=== PATIENT | female | born 1985 | race Caucasian/White ===

== ENCOUNTER 2017-02-24 09:36 | Outpatient (CLI) | payer OTHER | END 2017-02-24 09:37 | disposition home or self-care (01) | LOC: LAB.WCP 09:36 | PROVIDERS: ATTEND Physician Assistant Medical | DX: L02.91 Cutaneous abscess, unspecified (principal) | CPT/HCPCS: 87070; 87205 ==

== ENCOUNTER 2017-05-03 06:51 | Emergency (ER) | payer OTHER ==
[2017-05-03] MEDS ORDERED: KETOROLAC 60 MG/2 ML VIAL IVP STA (07:24)
[2017-05-03] MEDS ORDERED: KETOROLAC 30 MG/ML VIAL ONE (07:30)
--- NOTE | 2017-05-03 07:34 | ED Physician Documentation ---
History of Present Illness - Stated complaint Stated Complaint: CHEST PX - Chief complaint Chief Complaint: Resp - Additonal information Additional information: hx from pt 31 female pleuritic chest tightness and soa since yesterday improved overnight now back no fever cough no sig travel no leg pain swelling + smoker no OCP fhx DVT PE no sig fhx CAD LMP approx 1 m ago she is irreg doubts preg but not using control Review of Systems Constitutional: denies: Fever Throat: denies: Sore throat Cardiac: reports: Chest pain / pressure. denies: Palpitations Respiratory: reports: Dyspnea. denies: Cough GI: denies: Abdominal Pain : denies: Control Musculoskeletal: denies: Extremity pain, Extremity swelling Neurologic: denies: Generalized weakness Endocrine: denies: Easy bruising / bleeding Immunocompromised: denies: Immunocompromised PD PAST MEDICAL HISTORY - Past Medical History Past Medical History: No GI: GERD, Other Musculoskeletal: Other Other Past Medical History: Hip dyplasia - Past Surgical History Past Surgical History: Yes General: Cholecystectomy, Appendectomy - Present Medications Home Medications: Ambulatory Orders Medication Instructions Recorded Confirmed Levothyroxine [Synthroid] 150 mcg PO QDAC 09/15/15 05/03/17 raNITIdine [Zantac] 150 mg PO DAILY 09/15/15 05/03/17 Meloxicam 15 mg ORAL DAILY PRN 05/03/17 05/03/17 - Allergies Allergies/Adverse Reactions: Allergies Allergy/AdvReac Type Severity Reaction Status Date / Time amoxicillin Allergy Unknown Verified 05/03/17 07:00 - Social History Does the pt smoke?: Yes Smoking Status: Current every day smoker Does the pt drink ETOH?: No Does the pt have substance abuse?: No - Immunizations Immunizations are current?: Yes - POLST Patient has POLST: No PD ED PE NORMAL - Vitals Vital signs reviewed: Yes - General General: Alert and oriented X 3 - Neck Neck: Supple, no meningeal sign - Cardiac Cardiac: RRR - Respiratory Respiratory: No respiratory distress, Clear bilaterally - Abdomen Abdomen: Soft, Non tender - Extremities Extremities: Normal ROM s pain, No edema, No calf tenderness / cord - Neuro Neuro: Alert and oriented X 3, No motor deficit Results - Vitals Vitals: Vital Signs - 24 hr 05/03/17 05/03/17 05/03/17 06:55 09:22 09:25 Temperature 36.5 C Heart Rate 64 68 49 L Respiratory 18 20 20 Rate Blood Pressure 170/56 H 126/79 132/86 H O2 Saturation 99 98 98 05/03/17 05/03/17 05/03/17 09:49 11:20 12:57 Temperature Heart Rate 43 L 55 L 54 L Respiratory 18 18 20 Rate Blood Pressure 127/77 143/70 H 140/100 H O2 Saturation 98 96 99 05/03/17 15:05 Temperature Heart Rate 58 L Respiratory 18 Rate Blood Pressure 148/87 H O2 Saturation 97 Oxygen O2 Source Room air - EKG (time done) 0701 Rate: Rate (enter#) Rhythm: NSR Pillow: Normal Intervals: Normal MO QRS: Normal Ischemia: Normal ST segments - Labs Labs: Laboratory Tests 05/03/17 05/03/17 05/03/17 07:40 07:40 07:40 WBC 8.2 RBC 4.30 Hgb 13.5 Hct 39.3 MCV 91.5 MCH 31.3 H MCHC 34.2 RDW 12.9 Plt Count 224 MPV 9.6 Neut # 6.4 Lymph # 1.0 L [place] # 0.5 Eos # 0.2 Baso # 0.0 Absolute Nucleated RBC 0.00 Nucleated RBCs 0.0 D-Dimer Sodium 138 Potassium 4.1 Chloride 106 Carbon Dioxide 26 Anion Gap 6.0 BUN 22 H Creatinine 0.8 Estimated GFR (MDRD) 83 L Glucose 98 Calcium 9.1 Total Bilirubin 0.2 AST 24 ALT 27 Alkaline Phosphatase 67 Troponin I Total Protein 6.9 Albumin 4.2 Globulin 2.7 Albumin/Globulin Ratio 1.6 Lipase 32 Serum HCG, Qual NEGATIVE 05/03/17 05/03/17 08:30 08:30 WBC RBC Hgb Hct MCV MCH MCHC RDW Plt Count MPV Neut # Lymph # [place] # Eos # Baso # Absolute Nucleated RBC Nucleated RBCs D-Dimer 289.7 H Sodium Potassium Chloride Carbon Dioxide Anion Gap BUN Creatinine Estimated GFR (MDRD) Glucose Calcium Total Bilirubin AST ALT Alkaline Phosphatase Troponin I < 0.04 Total Protein Albumin Globulin Albumin/Globulin Ratio Lipase Serum HCG, Qual - Rads (name of study) CTPA Radiology: See rad report (no PE, mod cardiomegaly, mild diffuse groundglass opacities, 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) PD MEDICAL DECISION MAKING - ED course ED course: neg EKG and trop after sx since yesterday rules out ACS in this pt with low risk for ACS d dimer was + so got CTPA - took long time 2/2 d dimer clotted and then IV could not be used for CT and then another UIV was diff to establish - ultimatley CTPA got done and was negative also no dissection aneurysm pericardial or pleural effusion etc non specfic ground glass opacities but pt has no fever cough so doubt infectious etiology mild cardiomegaly so will rec pt follow up for an echo Departure - Departure Disposition: Home, Self Care Clinical Impression: Dyspnea Qualifiers: Dyspnea type: unspecified Qualified Code(s): R06.00 - Dyspnea, unspecified Chest pain Qualifiers: Chest pain type: unspecified Qualified Code(s): R07.9 - Chest pain, unspecified Condition: Good Instructions: ED Dyspnea Shortness of Breath, ED Chest Pain Atypical Unkn Cause Follow-Up: Jessica Ibarra PA-C [Primary Care Provider] - Comments: The EKG and blood tests for your heart were fine - given the duration of time you have had the symptoms this rules out a heart attack The CT scan was done to determine if you had a blood clot in your lung called a pulmonary embolus - no clots were seen. Also the CT scan did not show an aneurysm or dissection of your aorta, fluid around your lungs or heart, or a collapsed lung. The only abnormalities were some non specific mild "ground glass opacities in your lungs that can be due to a large variety of causes such as infection (not likely without a fever or cough) chronic lung disease (which you do not have), inflammation, and sometimes just due to the timing of the CT scan during your respiratory cycle. Also the CT scan shows your heart is slightly enlarged and this is a bit concerning and you will need to follow up with your PMD to get an echocardiogram (ultrasound) of your heart in the short term future. For today, the ER work up has ruled out life threatening causes of chest pain and trouble breathing (heart attack, blood clot, ruptured aorta, collapsed lung ) so it is safe for you to go home and continue your work up as an outpatient with your PMD I recommend you avoid any heavy exertion such as working out until you have seen your PMD and had the echocardiogram Also your blood pressure was high - please have your PMD recheck that Forms: Activity restrictions
[2017-05-03 08:09] LABS: BASOPHILS % (AUTO) 0.6 %; EOSINOPHILS # (AUTO) 0.2 10^3/uL (0.0-0.7); EOSINOPHILS % (AUTO) 3.1 %; HCT - HEMATOCRIT 39.3 % (37.0-47.0); HGB - HEMOGLOBIN 13.5 g/dL (12.0-16.0); MEAN CORPUSCULAR HEMOGLOBIN 31.3 pg (27.0-31.0); MEAN CORPUSCULAR HGB CONC 34.2 g/dL (32.0-36.0); MEAN CORPUSCULAR VOLUME 91.5 fL (81.0-99.0); MEAN PLATELET VOLUME 9.6 fL (7.9-10.8); MONOCYTES # (AUTO) 0.5 10^3/uL (0.0-1.0); MONOCYTES % (AUTO) 6.1 %; NEUTROPHILS # (AUTO) 6.4 10^3/uL (1.5-6.6); NEUTROPHILS % (AUTO) 78.2 %; RED CELL DISTRIBUTION WIDTH 12.9 % (12.0-15.0); UNCORRECTED WHITE BLOOD COUNT 8.2 x10^3/uL; WHITE BLOOD COUNT 8.2 x10^3/uL (4.8-10.8)
[2017-05-03 08:24] LABS: ALBUMIN/GLOBULIN RATIO 1.6 (1.0-2.2); BILIRUBIN,TOTAL 0.2 mg/dL (0.2-1.0); CALCIUM 9.1 mg/dL (8.5-10.3); CREATININE 0.8 mg/dL (0.4-1.0); POTASSIUM 4.1 mmol/L (3.5-5.0); TOTAL PROTEIN 6.9 g/dL (6.7-8.2)
[2017-05-03] MEDS ORDERED: IOPAMIDOL-300 100 ML VIAL IVP ONE (13:43)
--- NOTE | 2017-05-03 14:16 | CT Preliminary Report ---
Exam: CT Chest Angio (PE) IMPRESSION: 1. No evidence of pulmonary emboli. 2. Moderate cardiomegaly. 3. Mild diffuse groundglass opacities. 4. Congenital malrotation of the bowel, incidental finding. [facility] SITE ID: [id number]
--- NOTE | 2017-05-03 15:02 | CT Report ---
EXAM: CT ANGIOGRAM CHEST EXAM DATE: 05/03/2017 01:43 PM. CLINICAL HISTORY: Chest pain; smoker. Family history of DVT, pulmonary embolism, + D-dimer. COMPARISON: No prior CT chest. CT abdomen pelvis 12/17/2014. TECHNIQUE: Routine helical imaging was performed through the chest in the pulmonary arterial phase. I V Contrast: 80 cc Isovue 300. Reconstructions: Coronal 3-D MIP reconstructions.Sagittal and coronal. In accordance with CT protocol optimization, one or more of the following dose reduction techniques w ere utilized for this exam: automated exposure control, adjustment of mA and/or KV based on patient s ize, or use of iterative reconstructive technique. FINDINGS: Pulmonary Arteries: Diagnostic quality: Adequate through the segmental arteries. No evidence for acute or chronic pulmona ry emboli. RV/LV is within normal limits. There is no interventricular septal bowing. There is no reflux of cont rast material in the IVC. Lungs/Pleura: Mild diffuse groundglass opacities, throughout the lungs relatively sparing right lung apex and right middle lobe. No focal consolidation, effusion or pneumothorax. Mediastinum: Moderate cardiomegaly. No significant adenopathy. Thoracic Aorta: Unremarkable. 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 Cholecystectomy. Other: Cold mild wedging with irregular endplates, as well as degenerative disk disease inferior half of the kyphotic thoracic spine. IMPRESSION: 1. No evidence of pulmonary emboli. 2. Moderate cardiomegaly. 3. Mild diffuse groundglass opacities. 4. Congenital malrotation of the bowel, incidental finding. [facility] Referring Provider Line: [phone] SITE ID: [id number]
[2017-05-03 15:06] VITALS: BP 148/87
== END 2017-05-03 15:56 | disposition home or self-care (01) ==
LOC: ED 06:51
DX: R06.00 Dyspnea, unspecified (principal); R07.9 Chest pain, unspecified; F17.200 Nicotine dependence, unspecified, uncomplicated
CPT/HCPCS: 36415; 71275; 80053; 83690; 84484; 84703; 85025; 85379; 93005; 96374; 99284; Q9967

== ENCOUNTER 2017-11-03 06:50 | Emergency (ER) | payer OTHER ==
[2017-11-03] MEDS ORDERED: IOPAMIDOL-300 100 ML VIAL ONE (07:47)
[2017-11-03 07:56] LABS: BASOPHILS % (AUTO) 0.6 %; EOSINOPHILS # (AUTO) 0.1 10^3/uL (0.0-0.7); EOSINOPHILS % (AUTO) 1.7 %; HGB - HEMOGLOBIN 13.8 g/dL (12.0-16.0); MEAN CORPUSCULAR HEMOGLOBIN 30.6 pg (27.0-31.0); MEAN CORPUSCULAR HGB CONC 32.8 g/dL (32.0-36.0); MEAN CORPUSCULAR VOLUME 93.2 fL (81.0-99.0); MEAN PLATELET VOLUME 9.1 fL (7.9-10.8); MONOCYTES # (AUTO) 0.5 10^3/uL (0.0-1.0); MONOCYTES % (AUTO) 6.4 %; NEUTROPHILS # (AUTO) 5.7 10^3/uL (1.5-6.6); NEUTROPHILS % (AUTO) 78.3 %; PLT - PLATELET COUNT 242 10^3/uL (130-450); RED BLOOD COUNT 4.53 10^6/uL (4.20-5.40); RED CELL DISTRIBUTION WIDTH 13.3 % (12.0-15.0); WHITE BLOOD COUNT 7.3 x10^3/uL (4.8-10.8)
[2017-11-03 08:11] LABS: ALBUMIN 4.6 g/dL (3.2-5.5); ALBUMIN/GLOBULIN RATIO 1.5 (1.0-2.2); ALKALINE PHOSPHATASE 63 IU/L (42-121); ALT ALANINE AMINOTRANSFERASE 44 IU/L (10-60); AST ASPARTATE AMINOTRANSFERASE 34 IU/L (10-42); BILIRUBIN,TOTAL 0.4 mg/dL (0.2-1.0); BUN - BLOOD UREA NITROGEN 18 mg/dL (6-20); CALCIUM 9.2 mg/dL (8.5-10.3); CARBON DIOXIDE - CO2 24 mmol/L (21-32); CHLORIDE 102 mmol/L (101-111); CREATININE 0.9 mg/dL (0.4-1.0); GFR - MDRD 72 (>89); GLUCOSE 102 mg/dL (70-100); LIPASE 28 U/L (22-51); SODIUM 137 mmol/L (135-145); TOTAL PROTEIN 7.6 g/dL (6.7-8.2)
[2017-11-03 08:14] LABS: BILIRUBIN,URINE NEGATIVE (NEGATIVE); GLUCOSE, URINE (UA) NEGATIVE (NEGATIVE); KETONES,URINE (UA) NEGATIVE (NEGATIVE); LEUKOCYTE ESTERASE, URINE NEGATIVE (NEGATIVE); NITRITE,URINE NEGATIVE (NEGATIVE); OCCULT BLOOD,URINE NEGATIVE (NEGATIVE); PH,URINE 7.5 PH (5.0-7.5); PROTEIN,URINE NEGATIVE (NEGATIVE); UROBILINOGEN,URINE 0.2 (NORMAL) E.U./dL (NORMAL)
[2017-11-03 08:17] LABS: CRP - C-REACTIVE PROTEIN < 1.0 mg/dL (0-1.0)
[2017-11-03 08:17] LABS: CLARITY,URINE CLEAR (CLEAR); HCG UR QUAL NEGATIVE
[2017-11-03] MEDS ORDERED: IOPAMIDOL-300 100 ML VIAL IVP ONE (08:21)
--- NOTE | 2017-11-03 08:48 | CT Preliminary Report ---
Exam: CT ABDOMEN/PELVIS W/ IMPRESSION: 1. No acute abnormality of the abdomen or pelvis demonstrated. 2. Status post cholecystectomy. 3. Colonic diverticulosis without evidence of diverticulitis. [facility] SITE ID: [id number]
--- NOTE | 2017-11-03 08:48 | CT Report ---
EXAM: CT ABDOMEN AND PELVIS EXAM DATE: 11/03/2017 08:18 AM. CLINICAL HISTORY: LUQ pain . Left upper quadrant pain for one week. COMPARISONS: CT abdomen and pelvis without contrast 09/17/2015.. TECHNIQUE: Routine helical CT imaging was performed through the abdomen and pelvis. IV contrast: 100M L ISOVUE 300. Enteric contrast: No. Reconstructions: Coronal and sagittal. In accordance with CT protocol optimization, one or more of the following dose reduction techniques w ere utilized for this exam: automated exposure control, adjustment of mA and/or KV based on patient s ize, or use of iterative reconstructive technique. FINDINGS: Lung Bases: Stable small peripheral left lower lobe nodule is consistent with a benign finding. Liver: Normal. No masses. Gallbladder/Bile Ducts: Status post cholecystectomy. No brayden ductal dilatation. Spleen: Normal. Pancreas: Normal. Adrenal Glands: Normal. Kidneys: Normal. No masses or hydronephrosis. Peritoneal Cavity/Bowel: No brayden free fluid, free air or adenopathy. At least partial bowel rotation are mobile colon is without change with much of the ascending colon a nd cecum again at or to the left of the midline. No bowel obstruction. No definite acute abnormality of the bowel. Colonic diverticulosis without evidence of diverticulitis. The appendix is not clearly identified but there is no evidence of appendicitis. Pelvic Organs: Normal. The bladder and visualized pelvic organs are within normal limits. Vasculature: No aneurysms or other significant abnormality. Bones: No significant abnormality. Other: None. IMPRESSION: 1. No acute abnormality of the abdomen or pelvis demonstrated. 2. Status post cholecystectomy. 3. Colonic diverticulosis without evidence of diverticulitis. [facility] Referring Provider Line: [phone] SITE ID: [id number]
--- NOTE | 2017-11-03 09:03 | ED Physician Documentation ---
PD HPI ABD PAIN - Stated complaint Stated Complaint: LT SIDE PX - Chief complaint Chief Complaint: Abd Pain - History obtained from History obtained from: Patient, Family - History of Present Illness Timing - onset: How many weeks ago (3) Timing - duration: Weeks (3) Timing - details: Abrupt onset, Still present, Waxing and waning Quality: Sharp, Pain Location: LUQ Radiation: Chest Improved by: Other (nothing) Worsened by: Palpation Associated symptoms: No: Fever, Nausea, Vomiting Similar symptoms before: Diagnosis (costochondritis) Recently seen: Emergency Dept - Additional information Additional information: 32-year-old female has had pain in her left lower chest For the past 3 weeks. She has a background general pain and a sharp pain that will periodically increase. She has no modifying factors or this pain. Review of Systems Constitutional: denies: Fever Eyes: denies: Decreased vision Ears: denies: Ear pain Nose: denies: Congestion Throat: denies: Sore throat Cardiac: reports: Chest pain / pressure. denies: Palpitations, Pedal edema, Calf pain Respiratory: denies: Dyspnea, Cough GI: reports: Abdominal Pain. denies: Nausea, Vomiting : denies: Dysuria, Frequency Skin: denies: Rash Musculoskeletal: denies: Neck pain, Back pain, Extremity pain PD PAST MEDICAL HISTORY - Past Medical History Past Medical History: Yes GI: GERD, Other Musculoskeletal: Other - Past Surgical History Past Surgical History: Yes General: Cholecystectomy - Present Medications Home Medications: Ambulatory Orders Medication Instructions Recorded Confirmed Levothyroxine [Synthroid] 150 mcg PO QDAC 09/15/15 05/03/17 raNITIdine [Zantac] 150 mg PO DAILY 09/15/15 05/03/17 Meloxicam 15 mg ORAL DAILY PRN 05/03/17 05/03/17 - Allergies Allergies/Adverse Reactions: Allergies Allergy/AdvReac Type Severity Reaction Status Date / Time amoxicillin Allergy Unknown Verified 05/03/17 07:00 - Social History Does the pt smoke?: Yes Smoking Status: Current every day smoker Does the pt drink ETOH?: No Does the pt have substance abuse?: No - Immunizations Immunizations are current?: Yes - POLST Patient has POLST: No PD ED PE NORMAL - Vitals Vital signs reviewed: Yes (hypertensive mild ) - General General: Alert and oriented X 3, No acute distress, Well developed/nourished - HEENT HEENT: Atraumatic, PERRL, EOMI - Neck Neck: Supple, no meningeal sign - Cardiac Cardiac: RRR, No murmur - Respiratory Respiratory: No respiratory distress, Clear bilaterally, Other (there is mild chest pain to palpation of the left lower chest wall over the area the patient has complaints of sharp pains. ) - Abdomen Abdomen: Soft, Non tender - Back Back: No CVA TTP, No spinal TTP - Derm Derm: Normal color, Warm and dry, No rash - Extremities Extremities: No deformity, No edema - Neuro Neuro: No motor deficit, No sensory deficit Eye Opening: Spontaneous Motor: Obeys Commands Verbal: Oriented GCS Score: 15 - Psych Psych: Normal mood, Normal affect Results - Vitals Vitals: Vital Signs - 24 hr 11/03/17 06:58 Temperature 36.8 C Heart Rate 62 Respiratory 16 Rate Blood Pressure 138/80 H O2 Saturation 97 Oxygen O2 Source Room air - Labs Labs: Laboratory Tests 11/03/17 11/03/17 11/03/17 07:10 07:41 07:41 WBC 7.3 RBC 4.53 Hgb 13.8 Hct 42.2 MCV 93.2 MCH 30.6 MCHC 32.8 RDW 13.3 Plt Count 242 MPV 9.1 Neut # 5.7 Lymph # 1.0 L [place] # 0.5 Eos # 0.1 Baso # 0.0 Absolute Nucleated RBC 0.00 Nucleated RBC % 0.0 Sodium 137 Potassium 4.0 Chloride 102 Carbon Dioxide 24 Anion Gap 11.0 BUN 18 Creatinine 0.9 Estimated GFR (MDRD) 72 L Glucose 102 H Calcium 9.2 Total Bilirubin 0.4 AST 34 ALT 44 Alkaline Phosphatase 63 Troponin I C-Reactive Protein < 1.0 Total Protein 7.6 Albumin 4.6 Globulin 3.0 Albumin/Globulin Ratio 1.5 Lipase 28 Urine Color YELLOW Urine Clarity CLEAR Urine pH 7.5 Ur Specific [place] 1.015 Urine Protein NEGATIVE Urine Glucose (UA) NEGATIVE Urine Ketones NEGATIVE Urine Occult Blood NEGATIVE Urine Nitrite NEGATIVE Urine Bilirubin NEGATIVE Urine Urobilinogen 0.2 (NORMAL) Ur Leukocyte Esterase NEGATIVE Ur Microscopic Review NOT INDICATED Urine Culture Comments NOT INDICATED Urine HCG, Qual NEGATIVE 11/03/17 07:41 WBC RBC Hgb Hct MCV MCH MCHC RDW Plt Count MPV Neut # Lymph # [place] # Eos # Baso # Absolute Nucleated RBC Nucleated RBC % Sodium Potassium Chloride Carbon Dioxide Anion Gap BUN Creatinine Estimated GFR (MDRD) Glucose Calcium Total Bilirubin AST ALT Alkaline Phosphatase Troponin I < 0.04 C-Reactive Protein Total Protein Albumin Globulin Albumin/Globulin Ratio Lipase Urine Color Urine Clarity Urine pH Ur Specific [place] Urine Protein Urine Glucose (UA) Urine Ketones Urine Occult Blood Urine Nitrite Urine Bilirubin Urine Urobilinogen Ur Leukocyte Esterase Ur Microscopic Review Urine Culture Comments Urine HCG, Qual - Rads (name of study) CT abdomen pelvis with Radiology: Prelim report reviewed (Impression: 1. No acute abnormality of the abdomen or pelvis is demonstrated. 2. Status post cholecystectomy. 3. Colonic diverticulosis without evidence of diverticulitis.), EMP read indepedently, See rad report Procedures - Bedside sono Bedside sono by EMP: With use of bedside ultrasound the left kidney is imaged and there is no evidence of hydronephrosis in the kidney is sonographically nontender. PD MEDICAL DECISION MAKING - ED course Complexity details: reviewed old records, reviewed results, re-evaluated patient , considered differential, d/w patient, d/w family ED course: 32-year-old female with left chest wall pain without modifying factors is overly concerned about confirmation of the diagnosis. She does have some mild chest wall tenderness in the area and she has a history of recent upper respiratory infection with coughing paroxysms lasting 3 weeks which is now resolved. I suspect her diagnosis is costochondritis and I shared this with the patient. She has been diagnosis this previously and is concerned that there may be something wrong with her pancreas, spleen or her heart and further workup is obtained. All of her blood work and urinalysis and scans are normal. She is administered decadron 10mg IV and I have shared the results of her work up. She was given GI cocktail at [facility] without improvement and she has been on acid reduction without resolution. She asked if I thought she needed to follow up with GI and I do not think this would be of benefit. Departure - Departure Disposition: 01 Home, Self Care Clinical Impression: Costochondritis Condition: Stable Instructions: ED Chest Pain Costochondritis Follow-Up: Jessica Ibarra PA-C [Primary Care Provider] - Forms: Activity restrictions
[2017-11-03] MEDS ORDERED: DEXAMETHASONE 10 MG/ML VIAL IVP STA (09:07)
[2017-11-03 10:18] VITALS: BP 128/78
== END 2017-11-03 10:18 | disposition home or self-care (01) ==
LOC: ED 06:50
DX: M94.0 Chondrocostal junction syndrome [Tietze] (principal); K21.9 Gastro-esophageal reflux disease without esophagitis; F17.200 Nicotine dependence, unspecified, uncomplicated
CPT/HCPCS: 36415; 74177; 80053; 81003; 81025; 83690; 84484; 85025; 86140; 96374; 99283; 99284; Q9967; 81001; 87086

== ENCOUNTER 2018-01-13 20:49 | Emergency (ER) | payer OTHER ==
--- NOTE | 2018-01-13 21:40 | ED Physician Documentation ---
History of Present Illness - Stated complaint Stated Complaint: FEMALE - Chief complaint Chief Complaint: General - History obtained from History obtained from: Patient - History of Present Illness Timing: Other (4 days of suprapubic pressure with waves of pain and pain after she urinates without specific dysuria or frequency. No fevers or chills or nausea.) Review of Systems Constitutional: denies: Fever, Chills GI: denies: Nausea, Vomiting, Constipation, Diarrhea : denies: Dysuria, Frequency, Hesitancy PD PAST MEDICAL HISTORY - Past Medical History Past Medical History: Yes Endocrine/Autoimmune: HyPERthyroidism GI: GERD, Other Musculoskeletal: Other - Past Surgical History Past Surgical History: Yes General: Cholecystectomy - Present Medications Home Medications: Ambulatory Orders Medication Instructions Recorded Confirmed Levothyroxine [Synthroid] 150 mcg PO QDAC 09/15/15 05/03/17 Amitriptyline [Elavil] 10 mg PO HS #30 tablet 01/13/18 Omeprazole 20 mg PO BID 01/13/18 01/13/18 Phenazopyridine HCl [Pyridium] 200 mg PO TID #6 tablet 01/13/18 - Allergies Allergies/Adverse Reactions: Allergies Allergy/AdvReac Type Severity Reaction Status Date / Time amoxicillin Allergy Unknown Verified 01/13/18 20:55 - Social History Does the pt smoke?: Yes Smoking Status: Current every day smoker Does the pt drink ETOH?: No Does the pt have substance abuse?: No - Immunizations Immunizations are current?: Yes - POLST Patient has POLST: No PD ED PE NORMAL - Vitals Vital signs reviewed: Yes - General General: Alert and oriented X 3, No acute distress - Abdomen Abdomen: Normal bowel sounds, Soft, Non tender - Back Back: No CVA TTP, No spinal TTP - Neuro Neuro: Alert and oriented X 3, Normal speech Results - Vitals Vitals: Vital Signs - 24 hr 01/13/18 20:54 Temperature 36.8 C Heart Rate 75 Respiratory 18 Rate Blood Pressure 146/92 H O2 Saturation 98 Oxygen O2 Source Room air - Labs Labs: Laboratory Tests 01/13/18 21:12 Urine Color YELLOW Urine Clarity CLEAR Urine pH 6.0 Ur Specific [place] 1.010 Urine Protein NEGATIVE Urine Glucose (UA) NEGATIVE Urine Ketones NEGATIVE Urine Occult Blood NEGATIVE Urine Nitrite NEGATIVE Urine Bilirubin NEGATIVE Urine Urobilinogen 0.2 (NORMAL) Ur Leukocyte Esterase NEGATIVE Ur Microscopic Review NOT INDICATED Urine Culture Comments NOT INDICATED Urine HCG, Qual NEGATIVE PD MEDICAL DECISION MAKING - ED course ED course: 32-year-old woman with spasms of bladder pain, her urinalysis is normal. She has had her appendix out remotely and it sounds like she has had a cystoscopy in the past that was suggestive of interstitial cystitis although she is not currently under treatment for this. She had a gynecology appointment earlier today and she describes that visit and exam as normal. Departure - Departure Disposition: 01 Home, Self Care Clinical Impression: Bladder pain Condition: Good Record reviewed to determine appropriate education?: Yes Instructions: Cystitis Interstitial Prescriptions: Amitriptyline [Elavil] 10 mg PO HS #30 tablet Phenazopyridine HCl [Pyridium] 200 mg PO TID #6 tablet Comments: As discussed, it seems the most likely explanation for your symptoms are a flare of interstitial cystitis. The Pyridium should help and we are also starting you on amitriptyline which is the most widely used medication for this. We are starting it at a very low dose. Follow-up with your urologist as scheduled. Return if worse or for new symptoms.
[2018-01-13 21:47] LABS: BILIRUBIN,URINE NEGATIVE (NEGATIVE); GLUCOSE, URINE (UA) NEGATIVE (NEGATIVE); KETONES,URINE (UA) NEGATIVE (NEGATIVE); LEUKOCYTE ESTERASE, URINE NEGATIVE (NEGATIVE); NITRITE,URINE NEGATIVE (NEGATIVE); OCCULT BLOOD,URINE NEGATIVE (NEGATIVE); PROTEIN,URINE NEGATIVE (NEGATIVE); UROBILINOGEN,URINE 0.2 (NORMAL) E.U./dL (NORMAL)
[2018-01-13 21:51] LABS: CLARITY,URINE CLEAR (CLEAR); HCG UR QUAL NEGATIVE
[2018-01-13] MEDS ORDERED: PHENAZOPYRIDINE 100 MG TABLET PO STA (22:09)
[2018-01-13 22:23] VITALS: BP 154/85
== END 2018-01-13 22:22 | disposition home or self-care (01) ==
LOC: ED 20:49
DX: R39.89 Other symptoms and signs involving the genitourinary system (principal); E05.90 Thyrotoxicosis, unspecified without thyrotoxic crisis or storm; F17.200 Nicotine dependence, unspecified, uncomplicated
CPT/HCPCS: 81003; 81025; 99283; A9270; 81001; 87086

== ENCOUNTER 2020-08-18 08:00 | Outpatient (CLI) | payer OTHER | END 2020-08-18 23:59 | disposition home or self-care (01) | LOC: LAB.R 08:00 | PROVIDERS: ATTEND Physician Assistant | DX: J06.9 Acute upper respiratory infection, unspecified (principal); Z20.828 Contact with and (suspected) exposure to other viral communicable diseases ==

== ENCOUNTER 2020-09-24 08:34 | Outpatient (CLI) | payer OTHER ==
[2020-09-24 09:11] VITALS: BP 124/88
--- NOTE | 2020-09-24 09:11 | SLEEP CARE CONSULTATION ---
Information from patient questionnaire entered by Orquidea Ang. I have reviewed and concur with the information entered by Orquidea Ang. This document represents the service I personally performed and the decisions made by me, Magalys Nicholson ARNP. History of Present Illness Service Date and Time: 09/24/2020 0834 Reason for Visit: New patient Chief Complaint: reports: Unrefreshed sleep, Snoring, Excessive daytime sleepiness, Observed pauses in breathing, Fatigue, Frequent awakenings at night. denies: Insomnia, Other Date of Onset: years Usual bedtime: 11 pm Time it takes to fall asleep: 20-30 min Snores at night: Yes Observed to quit breathing while asleep: Yes Sleeps alone due to snoring: Yes Number of times waking at night: 2-3 Reasons for waking at night: reports: Choking (mostly from acid reflux), Snoring, Gasping for air, Other (feeling short of breath when laying down; has bad nasal congestion). denies: Bathroom Toss, Turn, or Twitch while sleeping: Yes Recalls having dreams: No Usually gets out of bed at: 8 am Feels refreshed in the morning: No Morning headache: Yes (every day, resolves with pain medication usually) Sleepy or fatigued during the day: Yes Ever fallen asleep while driving: No Takes day naps: No Dreams during day naps: No Prior sleep studies: No Additional HPI information: I had the pleasure of seeing AIDE PEREZ today regarding the possibility of her having a sleep disorder. Her current complaints are snoring, observed pauses in breathing, frequent night awakenings, fatigue, unrefreshed sleep and excessive daytime sleepiness. Her dentist recommended her to get tested. He told her she grinds her teeth. She saw her PCP who agreed she needed to be evaluated for sleep apnea. Her father has sleep apnea but is not compliant with treatment. - Parasomnia Symptoms Ever been unable to move upon waking from sleep: Yes Walks in sleep: No Talks in sleep: No Ever acted out dreams in sleep: No Ever felt weak in the knees when startled or emotional: No Bothered by creepy, crawly, restless sensations in legs: No Problems with memory or concentration: No Subjective Initial [place] Sleepiness Scale score: 14 (in 2019) Past Medical History Past Medical History: reports: Hypothyroidism, Anxiety, Asthma, GERD, Other (Right hip dysplasia). 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 Patient is Single and lives in [place]. Have you smoked in the past 12 months: Yes Cigarettes per day (20/pack): 10 Years of smokin Smoking Pack Years: 8.5 Alcohol use: No Caffeine use: Yes Caffeine amount and frequency: daily, one cup Family History Family history of sleep disordered breathing: Yes (father) Family Hx Sleep Apnea: Mother: Snoring, Father: Snoring, Sleep apnea - Untreated Allergies and Home Medications Drug allergies reviewed: Yes (amoxicillin) Home medication list reviewed: Yes Allergy and home medication list: Ibuprofen, prn famotidine, daily omeprazole, daily levothyroxine, daily nasal decongestant, OTC Flonase, daily Review of Systems Weight gain over past 5 years: 20 Cardiovascular: denies: high blood pressure, irregular heart rate or pulse Respiratory: denies: shortness of breath Gastrointestinal: reports: heartburn, nausea, abdominal pain. denies: difficulty swallowing Neurological: reports: headaches. denies: seizure, head trauma Psychiatric: reports: anxiety Ear/Nose/Throat: reports: nasal congestion, sinus problems, dry mouth/throat, hoarseness, tonsillectomy, wisdom teeth removed (still has one left). denies: nose bleeds, injury to nose Endocrine: reports: thyroid disease Musculoskeletal: reports: joint pain, neck pain, back pain Immunologic: denies: allergies to food or environment Physical Exam Blood Pressure: 124/88 Cuff size: wrist Heart Rate: 71 O2 Saturation: 98 Height: 5 ft 8 in Weight: 294 lb Body Mass Index: 44.6 BMI Classification: Morbidly Obese Neck circumference: 19.5 (inches) Nostrils: patent to airflow Septum: midline Mouth and throat: narrow oropharynx Hard palate: arched Uvula visualization: 25% Mallampati Class III Tongue: enlarged in size with teeth tan on lateral edges Tonsils: absent bilaterally Chin and jaw: normal size and position Neck: normal w/o lymphadenopathy or thyromegaly Heart: regular rate and rhythm Lungs: clear bilaterally Impression and Plan 1. Suspected Obstructive Sleep Apnea-Hypopnea Syndrome, as suggested by a history of loud and irregular snoring, observed cessation of breath while asleep, gasping or choking in sleep, morning headache, frequent awakening during the night, unrefreshed sleep, and excessive daytime sleepiness. I reviewed with patient that a narrow oropharynx and obesity are common predisposing factors for obstructive sleep apnea-hypopnea syndrome. I recommend proceeding to polysomnography to confirm the diagnosis and to assess severity. If the patient has significant sleep disordered breathing, a manual CPAP titration study will also be performed to find the optimal treatment pressure. I informed the patient of what the sleep studies involve and after some discussion, obtained agreement to proceed. The pathophysiology of obstructive sleep apnea-hypopnea syndrome was discussed with the patient and health risks of cardiovascular and cerebrovascular disease if not treated. AAS brochure for obstructive sleep apnea-hypopnea syndrome given and reviewed. Risks of drowsy driving discussed in detail and patient advised to avoid long distance driving and to pulling unit floorhand at the first sign of drowsiness. Patient agreed to plan. * Schedule polysomnography +- manual CPAP titration study. * Avoid long distance driving or driving when feeling sleepy. * Avoid alcohol, sedative and muscle relaxant around bedtime. * Attempt to lose weight. * Review instructions provided by trained office staff on how to prepare for the sleep study. * Return for follow-up after sleep study completed. Counseling Topics: Weight loss health impact Visit Type: In Office Provider Statement: I spent 100% of the Face to Face Visit with the patient with greater than 50% spent counseling the patient and coordination of care.
== END 2020-09-24 08:35 | disposition home or self-care (01) ==
LOC: SC 08:34
PROVIDERS: ATTEND Nurse Practitioner Family
DX: G47.10 Hypersomnia, unspecified (principal); G47.8 Other sleep disorders; R51.9 Headache, unspecified; R06.81 Apnea, not elsewhere classified; R06.83 Snoring; E66.01 Morbid (severe) obesity due to excess calories; Z68.41 Body mass index [BMI] 40.0-44.9, adult
CPT/HCPCS: 99203; 99212

== ENCOUNTER 2021-01-21 09:59 | Outpatient (CLI) | payer OTHER | END 2021-01-21 10:00 | disposition home or self-care (01) | LOC: SC 09:59 | PROVIDERS: ATTEND Nurse Practitioner Family | DX: G47.10 Hypersomnia, unspecified (principal); G47.8 Other sleep disorders; R06.81 Apnea, not elsewhere classified; R53.83 Other fatigue; R06.83 Snoring; E66.9 Obesity, unspecified; Z68.41 Body mass index [BMI] 40.0-44.9, adult | CPT/HCPCS: 95806 ==

== ENCOUNTER 2021-02-05 09:06 | Outpatient (CLI) | payer OTHER ==
--- NOTE | 2021-02-05 09:50 | SLEEP CARE CONSULTATION ---
Information from patient questionnaire entered by Orquidea Ang. I have reviewed and concur with the information entered by Orquidea Ang. This document represents the service I personally performed and the decisions made by , Magalys Nicholson ARNP. History of Present Illness Service Date and Time: 02/05/2021905 Initial [place] Sleepiness Scale score: 14 (in 2019) Current [place] Sleepiness Scale score: 10 Additional HPI information: AIDE PEREZ returns for follow up and results of the recently performed home sleep study. The patient was informed of the following findings: no significant sleep disordered breathing with an average AHI of 1.3 and oralia oxygen saturation of 91%. I explained the pathophysiology behind obstructive sleep apnea. Patient does not have sleep apnea and was advised how weight gain could increase the risk of developing sleep apnea in the future. I strongly encouraged the patient to lose weight. Patient has moderate to loud snoring. Snoring can be reduced by weight loss. Weight loss is best achieved with diet consult. Patient instructed to contact PCP for referral. Snoring can also be treated with an oral appliance from a dentist. Advised to check insurance coverage. In addition, an ENT evaluation can be do to see if other treatment is indicated. Patient does not drink alcohol. Patient was cautioned about risks of drowsy driving until sleepiness symptoms resolve. Sleep Study - Results Type of Sleep Study: Home sleep study Prior sleep studies: No Polysomnography/Home Sleep Study results: Physician Impression: The quality of the study is good. The length of the study is adequate (> 240 minutes). Please also see the tabulated and graphic data. 1. No significant sleep disordered breathing, with an AHI of 1.3/hr and oralia SaO2 of 91%. During the study, the patient had 7 apneas (7 obstructive, 0 central, 0 mixed) and 3 hypopneas. The longest episode lasted 76.5 seconds. The patient did not sleep supine during the test (supine AHI was 0.0 and non-supine, 1.27). Allergies and Home Medications Home medication list reviewed: Yes (no new meds) Review of Systems Review of systems same as previous: Yes (no changes) Physical Exam Heart Rate: 64 O2 Saturation: 98 Height: 5 ft 8 in Weight: 295 lb Body Mass Index: 44.8 BMI Classification: Morbidly Obese Impression and Plan Snoring but no significant sleep disordered breathing. Patient advised that often weight loss will reduce snoring as well as apnea risk. An oral appliance can also be used for snoring. This would require a dental consultation. Patient cautioned not to use other online appliances as can cause bite issues. A list of accredited dentists in [facility] and one local dentist who makes oral appliances is available in the office. Patient is advised to check if insurance will cover. An ENT consult can also be helpful to determine if any other treatment is an option. * Attempt to lose weight * Avoid alcohol consumption near bedtime * The patient is cautioned about driving until sleepiness is completely resolved. * Return in as needed for follow up. Counseling Topics: Weight loss health impact Visit Type: In Office Time Spent with Patient (minutes): 15 Provider Statement: I spent 100% of the Face to Face Visit with the patient with greater than 50% spent counseling the patient and coordination of care.
== END 2021-02-05 09:07 | disposition home or self-care (01) ==
LOC: SC 09:06
PROVIDERS: ATTEND Nurse Practitioner Family
DX: R06.83 Snoring (principal); E66.01 Morbid (severe) obesity due to excess calories; Z68.41 Body mass index [BMI] 40.0-44.9, adult
CPT/HCPCS: 99212

== ENCOUNTER 2021-10-18 16:00 | Outpatient (CLI) | payer OTHER ==
--- NOTE | 2021-10-19 01:17 | XRAY Report ---
PROCEDURE: Lumbar Spine 2 View INDICATIONS: LUMBAR SPRAIN TECHNIQUE: 2 views of the lumbar spine were acquired. COMPARISON: None. FINDINGS: Bones: 5 [id number] vertebrae are present. There is a minimal rightward curvature of the thora columbar spine. There is minimal retrolisthesis at T12-L1, L1-L2, L2-L3, and L3-L4. There is mild mul tilevel disc space narrowing within the upper and mid lumbar spine. Mild facet arthropathy is demonst rated in the lower lumbar spine. No vertebral body compression fractures. No suspicious bony lesions . Soft tissues: Overlying bowel gas pattern is normal. No suspicious soft tissue calcifications. IMPRESSION: 1. Multilevel minimal retrolisthesis. 2. Mild multilevel degenerative disc disease and mild facet arthropathy in the lower lumbar spine. Reviewed by: Darnell Spicer MD on 10/19/2021 1:16 AM PST Approved by: Darnell Spicer MD on 10/19/2021 1:16 AM [facility] Station ID: [id number]
== END 2021-10-18 16:01 | disposition home or self-care (01) ==
LOC: DI.N 16:00
PROVIDERS: ATTEND Family Medicine
DX: M47.816 Spondylosis without myelopathy or radiculopathy, lumbar region (principal); M51.36 Other intervertebral disc degeneration, lumbar region; M43.16 Spondylolisthesis, lumbar region

== ENCOUNTER 2022-03-16 09:15 | Outpatient (CLI) | payer OTHER ==
[2022-03-17 14:09] LABS: ANTI-DNA (DS) AB QN 1 IU/mL (0-9); CENTROMERE B ANTIBODIES <0.2 AI (0.0-0.9); CHROMATIN ANTIBODIES <0.2 AI (0.0-0.9); JO-1 AB <0.2 AI (0.0-0.9); RIBOSOMAL P ANTIBODIES <0.2 AI (0.0-0.9); RNP ANTIBODIES 0.2 AI (0.0-0.9); SCLERODERMA-70 ANTIBODIES <0.2 AI (0.0-0.9); SJOGREN'S ANTI-SS-A <0.2 AI (0.0-0.9); SJOGREN'S ANTI-SS-B <0.2 AI (0.0-0.9); SMITH ANTIBODIES <0.2 AI (0.0-0.9); SMITH/RNP ANTIBODIES <0.2 AI (0.0-0.9)
== END 2022-03-16 09:16 | disposition home or self-care (01) ==
LOC: LAB.N 09:15
PROVIDERS: ATTEND Physician Assistant Medical
DX: M25.50 Pain in unspecified joint (principal)
CPT/HCPCS: 36415; 85651; 86140; 86225; 86235

== ENCOUNTER 2022-05-12 09:09 | Emergency (ER) | payer MEDICAID, OTHER ==
[2022-05-12 09:59] VITALS: BP 144/87
--- NOTE | 2022-05-12 10:40 | ED Physician Documentation ---
History of Present Illness - Stated complaint Stated Complaint: LOW BACK/ABD PAIN - Chief complaint Chief Complaint: Back Pain - History obtained from History obtained from: Patient - Additonal information Additional information: The patient presented to the emergency department with a chief complaint of low back pain and her hip dysplasia pain acting up. However, when I went to see this patient, she was in tears and stated that she could not stand sitting in our padded chair any longer. Unfortunately, no other beds were available for the patient as our emergency department was not only full but overflowing. I offered the patient analgesia and a full interview and physical exam/evaluation, but the patient tearfully refused, stating she would rather just go to her primary care physician. She was ambulatory and had no gross neurologic deficits and was grossly alert and oriented, and I felt that this was a reasonable decision. I have not been able to perform a complete exam but do not find any convincing evidence of an emergent condition at this time. PD PAST MEDICAL HISTORY - Past Medical History Endocrine/Autoimmune: HyPERthyroidism GI: GERD, Other Musculoskeletal: Other - Past Surgical History Past Surgical History: Yes General: Cholecystectomy - Present Medications Home Medications: Ambulatory Orders Medication Instructions Recorded Confirmed Levothyroxine [Synthroid] 150 mcg PO QDAC 09/15/15 05/03/17 Amitriptyline [Elavil] 10 mg PO HS #30 tablet 01/13/18 Omeprazole 20 mg PO BID 01/13/18 01/13/18 Phenazopyridine HCl [Pyridium] 200 mg PO TID #6 tablet 01/13/18 - Allergies Allergies/Adverse Reactions: Allergies Allergy/AdvReac Type Severity Reaction Status Date / Time amoxicillin Allergy Unknown Verified 05/12/22 09:17 - Social History Does the pt smoke?: Yes Smoking Status: Current every day smoker Does the pt drink ETOH?: No Does the pt have substance abuse?: No - Immunizations Immunizations are current?: Yes - POLST Patient has POLST: No Results - Vitals Vitals: Vital Signs - 24 hr 05/12/22 05/12/22 09:12 09:58 Temperature 36.2 C L 36.9 C Heart Rate 74 65 Respiratory 18 15 Rate Blood Pressure 144/97 H 144/87 H O2 Saturation 98 95 Oxygen O2 Source Room air
== END 2022-05-12 10:37 | disposition left against medical advice (07) ==
LOC: ED 09:09
DX: M54.50 Low back pain, unspecified (principal); F17.200 Nicotine dependence, unspecified, uncomplicated

== ENCOUNTER 2022-12-02 11:20 | Outpatient (CLI) | payer MEDICAID, OTHER ==
[2022-12-02 19:12] LABS: BILIRUBIN,URINE NEGATIVE (NEGATIVE); GLUCOSE, URINE (UA) NEGATIVE (NEGATIVE); KETONES,URINE (UA) NEGATIVE (NEGATIVE); LEUKOCYTE ESTERASE, URINE NEGATIVE (NEGATIVE); NITRITE,URINE NEGATIVE (NEGATIVE); OCCULT BLOOD,URINE NEGATIVE (NEGATIVE); PH,URINE 7.5 PH (5.0-7.5); PROTEIN,URINE NEGATIVE (NEGATIVE); UROBILINOGEN,URINE 0.2 (NORMAL) E.U./dL (NORMAL)
[2022-12-02 19:37] LABS: BACTERIA,URINE Rare /HPF (None Seen); CLARITY,URINE CLEAR (CLEAR); RBC,URINE None Seen /HPF (0-5); SQUAMOUS EPITHELIAL CELL,UR FEW Squamous (<= Few); WBC,URINE 0-3 /HPF (0-5)
== END 2022-12-02 23:59 | disposition home or self-care (01) ==
LOC: LAB.WCP 11:20
PROVIDERS: ATTEND Physician Assistant Medical
DX: N30.10 Interstitial cystitis (chronic) without hematuria (principal)
CPT/HCPCS: 81001; 87086

== ENCOUNTER 2022-12-24 09:00 | Outpatient (CLI) | payer MEDICAID ==
[2022-12-24 18:09] LABS: HCG UR QUAL NEGATIVE
== END 2022-12-24 09:15 | disposition home or self-care (01) ==
LOC: LAB.N 09:00
PROVIDERS: ATTEND Nurse Practitioner
DX: R30.0 Dysuria (principal)
CPT/HCPCS: 81025; 87086

== ENCOUNTER 2023-01-21 06:50 | Outpatient (CLI) | payer MEDICAID ==
--- NOTE | 2023-01-21 10:04 | Ultrasound Report ---
PROCEDURE: Abdomen Complete INDICATIONS: SUPRAPUBIC ABD PAIN TECHNIQUE: Real-time scanning was performed of the abdominal and retroperitoneal organs, with image documentatio n. COMPARISON: CT abdomen pelvis 11/03/2017 FINDINGS: Liver: Increased liver echogenicity, commonly hepatic steatosis. Gallbladder: Absent. Biliary ducts: Intrahepatic bile ducts are non-dilated. Extrahepatic bile duct caliber measures 11 mm. Normal is 6-7 mm or less in diameter, or 10 mm or less post-cholecystectomy. Pancreas: Visualized portions of the pancreas are sonographically normal. Spleen: Spleen is normal in size and homogeneous in echotexture. Kidneys: Kidneys are normal in size and echotexture. Right kidney measures 11.4 cm long; left kidne y measures 12.1 cm long. No hydronephrosis or nephrolithiasis. No solid masses. No complex renal cy stic lesions which require follow-up. Aorta: Visualized aorta is normal in caliber at less than 3 cm. Iliacs: Proximal common iliac arteries are normal in caliber at less than 2.5 cm. IVC: Intrahepatic inferior vena cava is patent. Miscellaneous: No free abdominal fluid. IMPRESSION: 1. The liver is echogenic, a nonspecific finding commonly seen in the setting of steatosis. 2. Prior cholecystectomy. 3. Mild extrahepatic biliary ductal dilation. While this may be related to postcholecystectomy state, correlation with patient's symptoms and laboratory markers for biliary obstruction may be helpful. Reviewed by: Kenroy Garcia MD on 01/21/2023 10:03 AM PDT Approved by: Kenroy Garcia MD on 01/21/2023 10:03 AM PDT Station ID: [id number]
--- NOTE | 2023-01-21 14:27 | Ultrasound Report ---
PROCEDURE: Pelvic w/Transvaginal INDICATIONS: SUPRAPUBIC ABD PAIN TECHNIQUE: Real-time scanning was performed of the pelvic organs, with image documentation. Additional endovagi nal scanning was necessary due to incomplete visualization of the adnexal and endometrial structures by transabdominal scanning. COMPARISON: None. FINDINGS: Uterus: Uterus is anteverted and normal in size at 8.1 x 5.9 x 4.6 cm. The myometrium is homogeneou s. The endometrium measures 6.3 mm in combined thickness. Ovaries: The right ovary measures 2.8 x 1.6 x 1.6 cm, with a calculated ovarian volume of 3.6 cc. T he left ovary measures 5.4 x 4.1 cm, with a calculated ovarian volume of 50.6 cc. Complex appearing c yst is noted in the left ovary measuring 3.9 x 3.6 x 3.5 cm. Other: No pathologic free abdominal or pelvic fluid. IMPRESSION: Complex left ovarian cyst. Reviewed by: Africa Rodriguez MD on 01/21/2023 2:26 PM PDT Approved by: Africa Rodriguez MD on 01/21/2023 2:26 PM PDT Station ID: [id number]
== END 2023-01-21 06:51 | disposition home or self-care (01) ==
LOC: DI 06:50
PROVIDERS: ATTEND Physician Assistant Medical
DX: N83.292 Other ovarian cyst, left side (principal)

== ENCOUNTER 2023-07-26 02:14 | Emergency (ER) | payer MEDICAID ==
--- NOTE | 2023-07-26 02:20 | ED Physician Documentation ---
PD HPI ABD PAIN - Stated complaint Stated Complaint: ABD PX/NAUSEA - History obtained from History obtained from: Patient - Additional information Additional information: HPI from patient. Patient complains of left lower quadrant pain, gradual onset during the day yesterday in the afternoon (approximately 12 hours prior to arrival). Onset of pain was while she was at home and at rest; there was no particular inciting event. The pain is constant and has gradually progressed in intensity. The pain is exacerbated with palpation as well as movement. She has nausea but no vomiting. Patient says she does not recall having this type of pain in this location in the past. Denies fevers. Review of Systems Constitutional: reports: Reviewed and negative Cardiac: reports: Reviewed and negative Respiratory: reports: Reviewed and negative GI: reports: Abdominal Pain, Nausea. denies: Abdominal Swelling, Vomiting, Constipation, Diarrhea : denies: Dysuria, Frequency PD PAST MEDICAL HISTORY - Past Medical History Past Medical History: Yes Endocrine/Autoimmune: HyPERthyroidism GI: GERD, Other Musculoskeletal: Other - Past Surgical History Past Surgical History: Yes General: Cholecystectomy - Present Medications Home Medications: Ambulatory Orders Medication Instructions Recorded Confirmed Levothyroxine [Synthroid] 150 mcg PO QDAC 09/15/15 05/03/17 Amitriptyline [Elavil] 10 mg PO HS #30 tablet 01/13/18 Omeprazole 20 mg PO BID 01/13/18 01/13/18 Phenazopyridine HCl [Pyridium] 200 mg PO TID #6 tablet 01/13/18 Ciprofloxacin HCl [Cipro] 500 mg PO BID #14 tablet 07/26/23 HYDROcod/ACETAM 5/325 [[place] 5/325] 1 - 2 tablet PO Q6H PRN #14 tablet 07/26/23 metroNIDAZOLE [Flagyl] 500 mg PO BID 7 Days #14 tablet 07/26/23 - Allergies Allergies/Adverse Reactions: Allergies Allergy/AdvReac Type Severity Reaction Status Date / Time amoxicillin Allergy Mild Unknown Verified 07/26/23 02:43 - Social History Does the pt smoke?: Yes Smoking Status: Current every day smoker Does the pt drink ETOH?: No Does the pt have substance abuse?: No - Immunizations Immunizations are current?: Yes - POLST Patient has POLST: No PD ED PE NORMAL - Vitals Vital signs reviewed: Yes - General General: Alert and oriented X 3, No acute distress, Well developed/nourished - Cardiac Cardiac: RRR, No murmur - Respiratory Respiratory: No respiratory distress, Clear bilaterally - Abdomen Abdomen: Soft, Non distended, Other (TTP LLQ>suprapubic with guarding but no rebound) - Derm Derm: Normal color, Warm and dry Results - Vitals Vitals: Vital Signs - 24 hr 07/26/23 07/26/23 07/26/23 02:22 02:26 04:08 Temperature 36.6 C Heart Rate 86 89 75 Respiratory 18 18 18 Rate Blood Pressure 144/87 H 146/99 H O2 Saturation 98 98 98 07/26/23 07/26/23 04:21 05:20 Temperature Heart Rate 81 Respiratory 17 Rate Blood Pressure 121/80 136/86 H O2 Saturation 98 Oxygen O2 Source Room air - Labs Labs: Laboratory Tests 07/26/23 07/26/23 07/26/23 02:30 02:30 03:13 WBC 14.0 H RBC 4.39 Hgb 13.4 Hct 41.4 MCV 94.3 MCH 30.5 MCHC 32.4 RDW 12.8 Plt Count 282 MPV 11.0 H Neut # (Auto) 11.2 H Lymph # (Auto) 1.1 L [place] # (Auto) 1.2 H Eos # (Auto) 0.3 Baso # (Auto) 0.1 Absolute Nucleated RBC 0.00 Nucleated RBC % 0.0 Sodium 137 Potassium 4.0 Chloride 107 Carbon Dioxide 22 Anion Gap 8.0 BUN 13 Creatinine 0.8 Estimated GFR (MDRD) 80 L Glucose 115 H Calcium 9.3 Total Bilirubin 0.4 AST 25 ALT 32 Alkaline Phosphatase 73 Total Protein 6.6 Albumin 4.2 Globulin 2.4 Albumin/Globulin Ratio 1.8 Lipase 35 Urine Color YELLOW Urine Clarity CLEAR Urine pH 7.5 Ur Specific [place] 1.020 Urine Protein NEGATIVE Urine Glucose (UA) NEGATIVE Urine Ketones NEGATIVE Urine Occult Blood NEGATIVE Urine Nitrite NEGATIVE Urine Bilirubin NEGATIVE Urine Urobilinogen 0.2 (NORMAL) Ur Leukocyte Esterase NEGATIVE Ur Microscopic Review NOT INDICATED Urine Culture Comments NOT INDICATED Urine HCG, Qual NEGATIVE - Rads (name of study) CT A/P with IV contrast Relevant Findings:: Prelim report reviewed, See rad report PD Medical Decision Making - ED course Complexity details: reviewed results, re-evaluated patient, considered differential, d/w patient ED course: Tests ordered and results reviewed by me: CBC, ER abdominal panel, urinalysis, urine hCG, CT of the abdomen and pelvis with intravenous contrast. IV is established and she is given 30 mg IV Toradol. On lab results, mild leukocytosis is noted (WBC 14). Her ER abdominal panel is normal (except for GFR 80 and glucose 115). Urinalysis is normal, urine hCG negative. CT scan reveals uncomplicated descending colon diverticulitis. Results d/w patient. She is given 500mg cipro PO and 500mg flagyl PO and take- home pack of vicodin; prescriptions for cipro, flagyl, and vicodin are e- prescribed to patient's pharmacy of choice. Return precautions discussed. Departure - Departure Disposition: Home, Self Care Clinical Impression: Diverticulitis Condition: Good Instructions: ED Diverticulitis Prescriptions: Ciprofloxacin HCl [Cipro] 500 mg PO BID #14 tablet metroNIDAZOLE [Flagyl] 500 mg PO BID 7 Days #14 tablet HYDROcod/ACETAM 5/325 [[place] 5/325] 1 - 2 tablet PO Q6H PRN #14 tablet PRN Reason: Pain Comments: The CT scan of your abdomen and pelvis shows that you have diverticulitis of the colon. Within this discharge packet or sheets with information on this diagnosis. You were given the first dose of 2 different antibiotics while you were in the emergency department (ciprofloxacin, metronidazole), and I have electronically submitted prescriptions for both of these medications (1-week course of each) to the [facility] pharmacy in [place]. I have also submitted a prescription for Vicodin (narcotic/opiate pain medication). Follow-up with your primary care provider within the next 7 to 10 days for reevaluation. I am prescribing a short course of narcotic pain medication for you. These are potentially dangerous and addictive medications that should be used carefully. These medications may constipate you. Take an [id number] stool softener (docusate) twice daily with plenty of water while taking these medications. If you go 24 hours without a bowel movement, take [id number] miralax, per package instructions. Do not drink or drive while taking these medications. If you received narcotic or sedating medications while in the emergency department, do not drive for 24 hours. Store this medication in a safe, secure place and out of reach of children. It is a violation of federal law to give or sell this medication to another person or to use in a manner other than prescribed. The ED will not refill narcotic prescriptions, including prescriptions lost or stolen. To dispose of unwanted medications: 1. [facility] [address] in [place] has a medication drop box. They accept prescription medications (in pill form) Tuesday through Tuesday 9:00 a.m. to 5:00 p.m. 2. The [facility] [employer] accepts prescription medications (in pill form only) for disposal year round. Call for more information. 3. Contact the [facility] for the next [facility] sponsored prescription drug collection event. , [phone], or [phone]; Forms: PCP List, Activity restrictions Discharge Date/Time: 07/26/23 05:20
[2023-07-26 02:28] VITALS: O2SAT 98
[2023-07-26] MEDS ORDERED: KETOROLAC 30 MG/ML VIAL IVP STA (02:37)
[2023-07-26 02:43] LABS: BASOPHILS # (AUTO) 0.1 10^3/uL (0.0-0.1); BASOPHILS % (AUTO) 0.4 %; EOSINOPHILS # (AUTO) 0.3 10^3/uL (0.0-0.7); EOSINOPHILS % (AUTO) 2.3 %; HCT - HEMATOCRIT 41.4 % (37.0-47.0); HGB - HEMOGLOBIN 13.4 g/dL (12.0-16.0); LYMPHOCYTES # (AUTO) 1.1 10^3/uL (1.5-3.5); LYMPHOCYTES % (AUTO) 8.1 %; MEAN CORPUSCULAR HEMOGLOBIN 30.5 pg (27.0-31.0); MEAN CORPUSCULAR HGB CONC 32.4 g/dL (32.0-36.0); MEAN CORPUSCULAR VOLUME 94.3 fL (81.0-99.0); MONOCYTES # (AUTO) 1.2 10^3/uL (0.0-1.0); MONOCYTES % (AUTO) 8.9 %; NEUTROPHILS # (AUTO) 11.2 10^3/uL (1.5-6.6); NEUTROPHILS % (AUTO) 79.9 %; PLT - PLATELET COUNT 282 10^3/uL (130-450); RED BLOOD COUNT 4.39 10^6/uL (4.20-5.40); RED CELL DISTRIBUTION WIDTH 12.8 % (12.0-15.0)
[2023-07-26 02:53] LABS: ALBUMIN 4.2 g/dL (3.2-5.5); ALBUMIN/GLOBULIN RATIO 1.8 (1.0-2.2); BILIRUBIN,TOTAL 0.4 mg/dL (0.2-1.0); CALCIUM 9.3 mg/dL (8.5-10.3); CREATININE 0.8 mg/dL (0.6-1.3); TOTAL PROTEIN 6.6 g/dL (6.4-8.9)
[2023-07-26 03:25] LABS: BILIRUBIN,URINE NEGATIVE (NEGATIVE); GLUCOSE, URINE (UA) NEGATIVE (NEGATIVE); KETONES,URINE (UA) NEGATIVE (NEGATIVE); LEUKOCYTE ESTERASE, URINE NEGATIVE (NEGATIVE); NITRITE,URINE NEGATIVE (NEGATIVE); OCCULT BLOOD,URINE NEGATIVE (NEGATIVE); PH,URINE 7.5 PH (5.0-7.5); PROTEIN,URINE NEGATIVE (NEGATIVE); UROBILINOGEN,URINE 0.2 (NORMAL) E.U./dL (NORMAL)
[2023-07-26 03:28] LABS: CLARITY,URINE CLEAR (CLEAR); HCG UR QUAL NEGATIVE
[2023-07-26] MEDS ORDERED: iohexoL-300 100 ML VIAL IVP ONE (04:49)
[2023-07-26] MEDS ORDERED: HYDROcod/ACET 5/325 Prepack 4 PO STA (04:57)
[2023-07-26] MEDS ORDERED: CIPROFLOXACIN 250 MG TABLET PO STA (04:57)
[2023-07-26] MEDS ORDERED: metroNIDAZOLE 250 MG TABLET PO STA (04:58)
[2023-07-26 05:23] VITALS: BP 136/86
--- NOTE | 2023-07-26 08:48 | CT Report ---
PROCEDURE: ABDOMEN/PELVIS W INDICATIONS: LLQ pain, tenderness CONTRAST: Omni 300 100ml TECHNIQUE: After the administration of contrast, 5 mm thick sections acquired from the diaphragms to the symphys is. 5 mm thick coronal and sagittal reformats were acquired. For radiation dose reduction, the foll owing was used: automated exposure control, adjustment of mA and/or kV according to patient size. COMPARISON: None FINDINGS: Image quality: Excellent. Lung bases and heart: Unremarkable. Liver: Hepatic steatosis. Gallbladder and biliary tree: Surgically absent. No biliary dilation, accounting for post-cholecystec layne state. Spleen: No splenomegaly. Pancreas: No pancreatic ductal dilation. Adrenals: No adrenal nodule. Kidneys and ureters: No hydronephrosis. No renal cystic lesion which requires follow up. No solid mas s. Bowel and peritoneum: There is an inflamed diverticulum of the sigmoid colon (series 2, image 59), wi th associated adjacent fat stranding. No evidence perforation. No abscess. Lymph nodes: No central or retroperitoneal adenopathy. Vessels: No infrarenal aortic aneurysm. PELVIS Reproductive organs: Unremarkable. Bladder: No abnormal wall thickening, accounting for underdistension. Pelvic lymph nodes: No pelvic adenopathy by size criteria. Bones: No aggressive osseous abnormality. Other: No significant ventral or inguinal hernia. IMPRESSION: Diverticulitis of the distal descending colon, without evidence perforation. Reviewed by: Brijesh Cornejo on 07/26/2023 8:47 AM PDT Approved by: Brijesh Cornejo on 07/26/2023 8:47 AM PDT Station ID: [id number]
== END 2023-07-26 05:20 | disposition home or self-care (01) ==
LOC: ED 02:14
DX: K57.32 Diverticulitis of large intestine without perforation or abscess without bleeding (principal); F17.200 Nicotine dependence, unspecified, uncomplicated
CPT/HCPCS: 36415; 74177; 80053; 81003; 81025; 83690; 85025; 96374; 99284; A9270; Q9967; 81001; 87086